=== PATIENT | female | born 1990 | race Caucasian/White ===

== ENCOUNTER 2017-02-09 01:15 | Emergency (ER) | payer SELFPAY ==
[2017-02-09 01:27] VITALS: BMI 20.3
[2017-02-09] MEDS ORDERED: SODIUM CHLORIDE 1,000 ML IV STA (01:27)
--- NOTE | 2017-02-09 01:35 | PDOC ---
History of Present Illness - General Stated Complaint: INTOX Time Seen by Provider: 02/09/17 01:19 - History of Present Illness Initial Comments: 02/09/17 01:35 Alma Delia Moore is a 26 year old female with no significant past medical history who presents to the emergency department by ambulance with acute intoxication. Per family there was a family barbeque this evening and she drank a copious amount of alcohol. Family does not believe she used any drugs this evening and states that she normally does not consume much alcohol. According to mother she often has heavy periods. She is also lactose intolerant. Past History - Past Medical History Allergies/Adverse Reactions: Allergies Allergy/AdvReac Type Severity Reaction Status Date / Time lactose AdvReac Verified 02/09/17 01:28 Home Medications: Ambulatory Orders NK [No Known Home Medication] 02/09/17 - Immunization History Immunization Up to Date: Yes - Psycho/Social/Smoking Cessation Hx Anxiety: No Suicidal Ideation: No Smoking Status: No Smoking History: Never smoked Number of Cigarettes Smoked Daily: 0 Hx Alcohol Use: Yes (socail) Review of Systems - Review of Systems Comments:: Unable to perform as patient unconscious 02/09/17 02:02 *Physical Exam - Physical Exam Comments: 02/09/17 01:35 GENERAL: +Somnolent and pale appearing HEAD: No signs of trauma, normocephalic, atraumatic EYES: PERRLA, EOMI, sclera anicteric, conjunctiva clear ENT: Auricles normal inspection, hearing grossly normal, nares patent, oropharynx clear without exudates. Moist mucosa NECK: Normal ROM, supple, no lymphadenopathy, JVD, or masses LUNGS: No distress, speaks full sentences, clear to auscultation bilaterally HEART: Regular rate and rhythm, normal S1 and S2, no murmurs, rubs or gallops, peripheral pulses normal and equal bilaterally. ABDOMEN: Soft, nontender, normoactive bowel sounds. No guarding, no rebound. No masses EXTREMITIES: Normal inspection, Normal range of motion, no edema. No clubbing or cyanosis. NEUROLOGICAL: Cranial nerves II through XII grossly intact. No focal sensorimotor deficits SKIN: Warm, Dry, normal turgor, no rashes or lesions noted. 02/09/17 04:29 ED Treatment Course - LABORATORY CBC & Chemistry Diagram: 02/09/17 01:55 02/09/17 01:55 Medical Decision Making - Medical Decision Making 02/09/17 03:29 Patient presents with acute somnolence - was unresponsive to family. Alcohol level < 5.0 02/09/17 04:30 UTox positive for THC. Patient resting comfortably. Will D/C to home care. *DC/Admit/Observation/Transfer Diagnosis at time of Disposition: Cannabis intoxication Qualifiers: Complication of substance-induced condition: uncomplicated Qualified Code(s): F12.920 - Cannabis use, unspecified with intoxication, uncomplicated - Discharge Dispostion Disposition: HOME - Patient Instructions Printed Discharge Instructions: DI for Alcohol Abuse
[2017-02-09 02:05] LABS: MCH 29.1 pg (25.7-33.7); MCHC 33.9 g/dl (32.0-36.0); MEAN CELL VOLUME 85.9 fl (80-96); MEAN PLT VOLUME 8.5 fl (7.5-11.1); PLATELET COUNT 268 K/MM3 (134-434); RDW 13.2 % (11.6-15.6); WHITE BLOOD COUNT 7.8 K/mm3 (4.0-10.0)
[2017-02-09 02:29] LABS: ALBUMIN 4.6 g/dl (3.4-5.0); ANION GAP 11 (8-16); CALCIUM 8.9 mg/dL (8.5-10.1); CO2 27 mmol/L (21-32); GLUCOSE,RANDOM 97 mg/dL (74-106); SGOT/AST 29 U/L (15-37); SGPT/ALT 30 U/L (12-78)
[2017-02-09 02:33] LABS: ALK PHOS 65 U/L (45-117); BILIRUBIN,TOTAL 0.5 mg/dL (0.2-1.0); TOT PROT 8.1 g/dl (6.4-8.2)
[2017-02-09 02:45] LABS: SALICYLATE < 4.0 mg/dl (0.0-30.0)
--- NOTE | 2017-02-09 03:13 | PDOC ---
Attending Attestation - Resident Resident Name: Yuriy Herron - HPI HPI: 02/09/17 03:12 Pt comes with intox; at a family BBQ "had too much to drink" - Physicial Exam PE: 02/09/17 03:12 Agree with resident exam - Medical Decision Making 02/09/17 03:13 Pt is waking up progressively; UTOX [ending. All other labs normal 02/09/17 06:40 Pt only has cannabis in her system. She will be sent home with her mom and her sister.
[2017-02-09 04:30] LABS: URINE MARIJUANA THC POSITIVE ng/ml (CUTOFF=50)
[2017-02-09 04:43] VITALS: BP 102/65; PULSE 74
--- NOTE | 2017-02-09 22:13 | EKG ---
Test Reason : Blood Pressure : / mmHG Vent. Rate : 071 BPM Atrial Rate : 071 BPM P-R Int : 192 ms QRS Dur : 092 ms QT Int : 402 ms P-R-T Axes : 075 066 054 degrees QTc Int : 436 ms NORMAL SINUS RHYTHM POSSIBLE LEFT ATRIAL ENLARGEMENT BORDERLINE ECG NO PREVIOUS ECGS AVAILABLE Confirmed by APURVA SELBY, RANDELL ([id number]) on 02/09/2017 10:12:46 PM Referred By: Confirmed By:RANDELL MIXON MD
== END 2017-02-09 04:44 | disposition home or self-care (01) ==
LOC: JER 01:15
PROC: 3E0337Z Introduction of Electrolytic and Water Balance Substance into Peripheral Vein, Percutaneous Approach (ICD-10-PCS; principal; 2017-02-09)
DX: F12.920 Cannabis use, unspecified with intoxication, uncomplicated (principal)
CPT/HCPCS: 36415; 80053; 80307; 84702; 85027; 93005; 93010; 99282-25